=== PATIENT | male | born 1960 | race Caucasian/White ===

== ENCOUNTER 2020-06-28 13:57 | Emergency (ER) | payer OTHER, SELFPAY ==
[~2020-06-28 13:57] MED LIST: ALDACTONE25 MG PO; BUMEX1 MG PO; CBD OIL SL; CEFDINIR300 MG PO; COREG25 MG PO; COUMADIN5 MG PO; COZAAR50 MG PO; DIGITEK125 MCG PO; ENTRESTO 49 MG1 EACH PO; FLEXERIL10 MG PO; K-DUR20 MEQ PO; MELATONIN3 M2 PO; METOLAZONE2.5 MG PO; NEURONTIN300 MG PO; NORCO 5-325 TA1 EACH PO; NORVASC2.5 MG PO; NOVOLOG MI100 UNIT/3 SC; ROSUVASTATIN CA10 MG PO; TRAZODONE HCL50 MG PO
[2020-06-28 17:43] LABS: BASOPHIL 0.8 % (0-2); EOSINOPHIL 1.5 % (0-5); HGB 15.2 g/dl (13.2-18.0); LYMPHOCYTE 15.7 % (15-48); MCH 28.5 pg (25.0-31.0); MCHC 31.7 g/dL (32.0-36.0); MCV 90.1 fL (78.0-100.0); MONOCYTE 6.8 % (0-12); NEUTROPHIL 73.8 % (41-80); NRBC 0; PLT 152 K/uL (150-400); RBC 5.33 M/uL (4.70-6.00); WBC 8.8 K/uL (4.0-10.5)
[2020-06-28 17:44] LABS: BILIRUBIN NEGATIVE (NEGATIVE); BLOOD TRACE-INTACT Ery/uL (NEGATIVE); CLARITY CLEAR (CLEAR); COLOR YELLOW (YELLOW); GLUCOSE (U) NORMAL (NORMAL); LEUKOCYTES NEGATIVE Leu/uL (NEGATIVE); NITRITE NEGATIVE (NEGATIVE); PROTEIN NEGATIVE (NEGATIVE); SPECIFIC GRAVITY 1.015 (1.001-1.030); UROBILINOGEN 0.2 mg/dL (0.2-1.0)
[2020-06-28 18:03] LABS: ALBUMIN 3.6 g/dL (3.4-5.0); BILIRUBIN - TOTAL 0.7 mg/dL (0.2-1.0); BUN/CREAT RATIO (CALC) 25.9 RATIO; CREATININE 1.12 mg/dL (0.67-1.17); GLOBULIN (CALCULATION) 4.6 g/dL; POTASSIUM 3.6 mmol/L (3.5-5.1); TOTAL PROTEIN 8.2 g/dL (6.4-8.2)
[2020-06-28 19:05] LABS: BACTERIA TRACE
== END 2020-06-28 20:57 | disposition home or self-care (01) ==
LOC: FER 13:57
PROVIDERS: Nurse Practitioner Family
DX: R53.83 Other fatigue (principal); R53.81 Other malaise; E11.9 Type 2 diabetes mellitus without complications; I48.91 Unspecified atrial fibrillation; I50.9 Heart failure, unspecified; Z95.1 Presence of aortocoronary bypass graft; Z95.0 Presence of cardiac pacemaker; Z88.0 Allergy status to penicillin
CPT/HCPCS: 36415; 71046; 80053; 81001; 84484; 85025; 93005

== ENCOUNTER 2021-06-28 18:35 | Emergency (ER) | payer OTHER ==
[2021-06-28 19:08] LABS: BASOPHIL 0.7 % (0-2); EOSINOPHIL 2.3 % (0-5); HCT 41.4 % (42.0-52.0); HGB 13.6 g/dl (13.2-18.0); MCHC 32.9 g/dL (32.0-36.0); MCV 91.4 fL (78.0-100.0); MONOCYTE 6.8 % (0-12); NEUTROPHIL 73.5 % (41-80); NRBC 0; PLT 100 K/uL (150-400); RBC 4.53 M/uL (4.70-6.00); RDW 14.8 % (11.5-14.0); WBC 7.1 K/uL (4.0-10.5)
[2021-06-28 19:22] LABS: INR 1.12 (0.9-1.2); PROTHROMBIN TIME 13.8 SECONDS (11.8-13.4); PTT 31.2 SECONDS (24.4-34.7)
[2021-06-28 19:44] LABS: CORONAVIRUS 2019 SARS-COV-2 NEGATIVE (NEGATIVE); INFLUENZA A NAA NEGATIVE (NEGATIVE)
[2021-06-28 19:54] LABS: ALBUMIN 3.5 g/dL (3.4-5.0); BILIRUBIN - TOTAL 0.6 mg/dL (0.2-1.0); BUN/CREAT RATIO (CALC) 28.3 RATIO; CREATININE 1.52 mg/dL (0.67-1.17); GLOBULIN (CALCULATION) 4.1 g/dL; POTASSIUM 5.2 mmol/L (3.5-5.1); TOTAL PROTEIN 7.6 g/dL (6.4-8.2)
== END 2021-06-29 20:30 | disposition home or self-care (01) ==
LOC: FER 18:35
PROVIDERS: Emergency Medicine
DX: I21.4 Non-ST elevation (NSTEMI) myocardial infarction (principal); I25.10 Atherosclerotic heart disease of native coronary artery without angina pectoris; I11.0 Hypertensive heart disease with heart failure; I50.9 Heart failure, unspecified; E11.9 Type 2 diabetes mellitus without complications; Z88.0 Allergy status to penicillin; Z95.0 Presence of cardiac pacemaker; Z20.822 Contact with and (suspected) exposure to COVID-19
CPT/HCPCS: 36415; 71045; 80053; 83880; 84484; 85025; 85610; 85730; 93005; 96372; J1650; J1940; J2270; J2405; U0002